=== PATIENT | female | born 1965 | race Caucasian/White ===

== ENCOUNTER → 2021-06-17 | Outpatient (CLI) | payer BC | LOC: KOH-I 09:22 | DX: M79.642 Pain in left hand (principal); R20.0 Anesthesia of skin; M54.2 Cervicalgia; M54.6 Pain in thoracic spine; M50.30 Other cervical disc degeneration, unspecified cervical region | CPT/HCPCS: 72040; 72070; 72100; 73130 ==

== ENCOUNTER → 2021-07-31 | Outpatient (CLI) | payer BC | LOC: KOH-I 13:58 | DX: M50.11 Cervical disc disorder with radiculopathy, high cervical region (principal) | CPT/HCPCS: 72141 ==